=== PATIENT | female | born 1955 | race Caucasian/White ===

== ENCOUNTER 2024-03-17 13:15 | Outpatient (RCR) | payer OTHER, SELFPAY ==
--- NOTE | 2024-01-29 18:11 | OPREHPOC ---
Outpatient Therapy Plan of Care This is a Multidisciplinary Plan of Care that may contain components documented by all disciplines (PT, OT, and ST.) PT Problem 1 PT Problem #1 Knowledge Deficit PT Goal 1 Goal Pt will be independent in HEP Pt will verbalize understanding of diagnosis and prognosis Target Visit 5 PT Problem 2 PT Problem #2 Pain PT Goal 1 Goal Pt will report greatest pain level at 3/10 or less to improve ADLs and activities Target Visit 10 PT Goal 2 Goal Pt will report resolution of pain to return to PLOF Target Visit 20 PT Problem 3 PT Problem #3 Impaired Range of Motion PT Goal 1 Goal Pt will demo lumbar ROM of 75% or greater Target Visit 10 PT Problem 4 PT Problem #4 Impaired Strength PT Goal 1 Goal Pt will demo core strength of 3+/5 of the TRAM to improve lumbopelvic stability Target Visit 10 PT Goal 2 Goal Pt will demo strength of 4/5 in all tested planes to improve lumbopelvic stability Target Visit 20
--- NOTE | 2024-01-29 18:11 | PTOPEVAL1 ---
Assessment and note entered by Roxanne Campbell, PT Evaluation Information Assessment Status Evaluation ICD-10 Condition Codes (PT) Pain in low back M54.50,R26.9 Onset January 01 Subjective Information Pt has had long standing cervical issues, including MRI and neurologist so was suprised when back went out. Had felt for a few days had felt odd. Morning of January 01, was in the shower bent over to was her toes, lifted left leg onto right and then couldn't stand back up. For about 6 hours couldn't to anything . Couldn't find a comfortable position. Had her mothers walker and used it for about 2 days, putting a lot of weight through arms . At times couldn't put any weight in the left foot. After three days went from walker to cane, then day 5 was walking on her own. Has improved but has not returned to kayaking, walking for fitness, or pickle ball. Is currently taking tylenol and dicolfenac (for neck issues). Also took muscle relaxer for her neck that she took for neck. Reported Pain Level Pain Score 0: Self Report Additional Pain Score Comments Highest pain level within the last week 09/21. Assessment PT Clinical Summary Pt presents with complaints of back pain that has greatly improved since initial incident on January 01. However she has yet to return to her high level activities such as pickle ball and kayaking, she also has not returned to walking for fitness. She shows guarding but also stiffness with lumbar ROM, decreased flexibility, and greatly decreased lumbopelvic core strenght. Pt will greatly benefit from physical therapy to address deficits, and assist pt in returning to her PLOF without pain. Plan of Care Interventions Electrical Stimulation,Hot Pack/Cold Pack,Manual Therapy,Mechanical Traction,Neuro Re-education, Patient/Caregiver Educati,Therapeutic Activities, Therapeutic Exercise,Self-Care/Home Management, Ultrasound PT Services Indicated Yes Treatment Frequency and 1-2x weekly x 10 visits Duration These treatments will address the objective and functional deficits as defined above. The patient will be advanced safely and appropriately in order for the patient to progress towards his/her prior level of function. Additional exercises will be introduced and as well as a comprehensive home exercise program upon d
--- NOTE | 2024-03-18 10:50 | PTOPDC ---
Assessment and note entered by Roxanne Campbell, PT Evaluation Information Assessment Status Re-evaluation/Discharge ICD-10 Condition Codes (PT) Pain in low back M54.50,R26.9 Onset January 01 Subjective Information Pt reports her upper neck her doctor's want her to do surgery. Scheduled 04/15/24, a ACDF, reports only wants to do the one level that is pressing on spinal cord at C5-6. Low back is better regarding pain but is now stiff . Reports bending and stretching at home felt like this helped the most. Reports has more stiffness in her back than pain. States when she sits in her chair and pulls out her papers does the ones she thinks will feel good and stretching. Pt has not returned to higher level activities because of the neck and not because of the back Reported Pain Level Pain Score 0: Self Report Assessment PT Clinical Summary Pt was able to attend 3 visits other than her evaluation and her discharge. She reports her back is doing better, but hasn't been able to return to her high level activities due to her neck issues. She reports she has an ACDF C5-6 scheduled for a month from now and has been told not to challenge herself with these high level activities at this time. Discussed back goals with patient, advised continuing the low level stretches for her back she has been doing, and to consider revisiting therapy after she has rehabbed her cervical spine. Thus patient is being discharged at this time due to shift in focus. Plan of Care PT Services Indicated No
== END 2024-03-30 12:05 | disposition home or self-care (01) ==
LOC: ANHHIPT 13:15
PROVIDERS: PCP Physician Assistant Medical; Visit Provider Physician Assistant Medical
DX: M54.50 Low back pain, unspecified (principal)
CPT/HCPCS: 97014; 97110; 97112; 97140; 97162; 97164; 97530; G0283